=== PATIENT | male | born 1970 | race Caucasian/White ===

== ENCOUNTER 2024-09-16 08:31 | Emergency (ER) | payer OTHER ==
[2024-09-16] MEDS: Ondansetron 4 MG/2 ML SDV IVPUSH ONE (09:53)
[2024-09-16] MEDS: Ketorolac 30 MG/ML SDV IVPUSH ONE (09:53)
[2024-09-16 12:57] LABS: APPEARANCE,URINE CLEAR (Clear); BILIRUBIN,URINE NEGATIVE (Negative); COLOR,URINE YELLOW (Yellow); GLUCOSE,URINE NEGATIVE (Negative); KETONES,URINE TRACE (Negative); LEUKOCYTE ESTERASE,URINE NEGATIVE (Negative); NITRITE,URINE NEGATIVE (Negative); OCCULT BLOOD,URINE 3+ (Negative); PROTEIN,URINE 1+ (Negative); UROBILINOGEN,URINE 0.2 (0.2-1.0)
[2024-09-16 13:16] LABS: BACTERIA,URINE MODERATE /hpf (FEW); EPITHELIAL CELLS,URINE 0-5 /hpf (0-5); MUCUS,URINE MANY /hpf (FEW); RBC,URINE 50-75 /hpf (0-5); WBC,URINE 0-5 /hpf (0-5)
== END 2024-09-16 14:06 | disposition home or self-care (01) ==
LOC: JD.ED 08:31
DX: N20.0 Calculus of kidney (principal); I10 Essential (primary) hypertension; J45.909 Unspecified asthma, uncomplicated; Z91.011 Allergy to milk products; Z79.899 Other long term (current) drug therapy; Z86.16 Personal history of COVID-19
CPT/HCPCS: 74176; 81001; 96374; 96375; 99284; J1885; J2405; 99283